=== PATIENT | female | born 1950 | race Caucasian/White ===

== ENCOUNTER → 2024-05-03 08:39 | Outpatient (REF) | payer MEDICARE, SELFPAY | LOC: HWWDC 08:39 | PROVIDERS: ATTENDING PHYSICIAN Family Medicine | DX: M81.0 Age-related osteoporosis without current pathological fracture (principal); Z12.31 Encounter for screening mammogram for malignant neoplasm of breast | CPT/HCPCS: 77063; 77067; 77080 ==

== ENCOUNTER → 2024-06-15 06:28 | Day surgery (SDC) | payer MEDICARE, SELFPAY | LOC: GI 06:28 | PROVIDERS: ATTENDING PHYSICIAN Internal Medicine Gastroenterology | DX: Z12.11 Encounter for screening for malignant neoplasm of colon (principal); D12.3 Benign neoplasm of transverse colon; K63.5 Polyp of colon; K57.30 Diverticulosis of large intestine without perforation or abscess without bleeding; Z86.0100 Personal history of colon polyps, unspecified | CPT/HCPCS: 45380; 88305 ==

== ENCOUNTER 2024-10-03 13:53 | Emergency (ER) | payer MEDICARE, SELFPAY ==
--- NOTE | 2024-10-03 14:12 | ED.GENMED ---
ED Provider Triage
<Pranav Du PA-C - Last Filed: 10/03/24 14:13>
-
Patient seen by provider in Triage?: Seen in Triage
Attestation: A medical screening examination has been initiated by a qualified medical provider. Based on the assessment performed at this time, it has been determined that an emergent medical condition may exist and the patient has been informed
that further medical evaluation and possible additional diagnostic testing may be needed.
HPI: 74-year-old female presents with multiple complaints including headache dizziness lightheadedness sensations she is leaning to the left as well as cough fatigue and indigestion. It has been intermittent since July but worse over the past
several days. She is slightly hypertensive at triage but vital signs otherwise stable. Initiated workup including labs EKG chest x-ray flu and COVID test and CT of head
GENERAL: Alert , in no apparent distress
EYE: No visual abnormalities.
NECK: Trachea midline
ENT: No visible abnormalities.
LUNGS: No acute respiratory distress
NEUROLOGICAL: Alert and oriented
SKIN: Skin intact. No visible changes.
MUSCULOSKELETAL: Moving extremities normally
PSYCH: Normal and appropriate interaction.
This is a medical evaluation conducted in person to initiate diagnostic evaluation and provide initial therapeutics. Please see further documentation by the treating clinician.
History of Present Illness
<Pranav Du PA-C - Last Filed: 10/03/24 14:13>
General
Chief Complaint: Dizziness
Time Seen by Provider: 10/03/24 16:52
<Kenji Alicea DO - Last Filed: 10/03/24 18:05>
History of Present Illness
History of Present Illness:
TIME OF INITIAL ENCOUNTER: 4:55 PM
HPI: The patient reports lightheadedness ongoing over the last several months. The symptoms of lightheadedness have been worsening. She occasionally has a headache. This is associated with some degree of dizziness. She feels like when she walks
she leans towards the left side. Only vague shortness of breath at times described as 'inability to take a full breath' (however she is in no respiratory distress at all).
EXAM:
GENERAL: Well appearing in no distress
HEENT: Moist oral mucosa
CARDIOVASCULAR: No murmurs, normal heart rate, regular rhythm, No chest wall tenderness
PULMONARY: No respiratory distress, breath sounds are clear and equal
ABDOMEN: Soft with no peritoneal signs, no tenderness
NEUROLOGIC: Excellent strength all extremities, no coordination deficits, borderline positive Berne-Hallpike maneuver more so on the right, normal finger-nose testing, I had the patient walk in the room and she did this without any difficulty
PSYCHIATRIC: Appropriate mental status, normal insight and judgement
EXTREMITIES: Nontender, no edema, moves all extremities equally
SKIN: No rash, no lesions
NUMBER AND COMPLEXITY OF PROBLEMS ADDRESSED AT THE ENCOUNTER
� Chronic conditions affecting care: Hypothyroidism, hyperlipidemia
� Acute Exacerbation and/or Progression of Chronic Illness: This is an acute problem
� Differential Diagnosis includes: Positional vertigo, doubt CVA, electrolyte abnormality, intracranial mass,
AMOUNT AND/OR COMPLEXITY OF DATA TO BE REVIEWED AND ANALYZED
� I performed an independent evaluation of and my interpretation is:
EKG: Sinus 78, normal axis, no acute ST abnormality
CT: Brain CT shows no acute abnormality
X-rays: Chest x-ray negative
Laboratory Studies: CBC is unremarkable, chemistries relatively unremarkable, troponin less than 0.012, COVID-negative
Other:
� Review of other/old records: I reviewed records, the patient had a colonoscopy in June 2024
� Clinical information was obtained by an independent historian: I spoke to brother at bedside
� Prescriptions/Medications Considered but not given: Considered IV fluids however the patient feels that she is well-hydrated
� Further testing considered but not performed:
RISK OF COMPLICATIONS AND/OR MORBIDITY OR MORTALITY OF PATIENT MANAGEMENT
� Social determinants of health affecting care: The patient lives at home
� Discussion with other providers:
� Escalation of care including admission/observation vs risk of discharge considered: Although patient describes lightheadedness over the last several months, as well as sensation of veering toward the left when she walks, there
is no abnormal neurologic finding on neurologic examination. She does however have a positive Kishore-Hallpike maneuver at least borderline. More strongly suspect positional vertigo. Gave prescription for vestibular rehab as well as ENT and she does
have appointment with primary care doctor. Believe that the PMD if they wanted to pursue any MRI of the brain in the future.
ANY OTHER UPDATES:
Past History
<Pranav Du PA-C - Last Filed: 10/03/24 14:13>
Past History
ED Past Medical History: Hypercholesterolemia and Other (Hypothyroidism)
Social History
Tobacco: Non-smoker
Alcohol: Occasional
Drug: None
Personal:
Living: with family
Employment: Other (Noncontributory)
Family History
Family History: Other (Father with lung cancer)
Phy Exam
<Kenji Alicea DO - Last Filed: 10/03/24 18:05>
Physical Exam
Physical Exam:
See HPI
Course
<Pranav Du PA-C - Last Filed: 10/03/24 14:13>
Orders/Labs/Results
Orders:
Orders
10/03/24 13:57
ECG [Electrocardiogram (*1)] Urgent
Reason for Study: Chest Pain
EKG- Treatment ONCE
10/03/24 14:11
CR Chest - 2 Views Urgent
Comment:
Reason For Exam: sob
10/03/24 14:12
CT Head W/o Iv Contrast Urgent
Comment:
Reason For Exam: headache, dizzy
02/26/25 14:23
COVID-19 Antigen Urgent
Source: Nasal Swab
Complete Blood Count/With Diff Urgent
Comprehensive Metabolic Panel Urgent
Troponin I Urgent
Influenza A+B Rapid Molecular Urgent
GREG[facility]IO Source: Nasal Swab
Specimen Description:
Abnormal Lab Results
10/03/24
14:23
MPV 11.0 H fL
(7.4-10.4)
Glucose 106 H mg/dl
(70-99)
Calcium 10.3 H mg/dl
(8.4-10.2)
ALT 40 H U/L
(0-35)
10/03/24 14:23
10/03/24 14:23
Vital Signs
Initial and Last Documented VS:
Initial Vital Signs
Pulse Resp Pulse Ox
101 18 98
10/03/24 13:57 10/03/24 13:57 10/03/24 13:57
Last Documented Vital Signs
Pulse Resp BP Pulse Ox
80 20 164/83 96
10/03/24 16:41 10/03/24 16:41 10/03/24 17:12 10/03/24 17:15
<Kenji Alicea, DO - Last Filed: 10/03/24 18:05>
Orders/Labs/Results
Orders:
Orders
10/03/24 13:57
ECG [Electrocardiogram (*1)] Urgent
Reason for Study: Chest Pain
EKG- Treatment ONCE
10/03/24 14:11
CR Chest - 2 Views Urgent
Comment:
Reason For Exam: sob
10/03/24 14:12
CT Head W/o Iv Contrast Urgent
Comment:
Reason For Exam: headache, dizzy
10/03/24 14:23
COVID-19 Antigen Urgent
Source: Nasal Swab
Complete Blood Count/With Diff Urgent
Comprehensive Metabolic Panel Urgent
Troponin I Urgent
Influenza A+B Rapid Molecular Urgent
G[facility]IO Source: Nasal Swab
Specimen Description:
Abnormal Lab Results
10/03/24
14:23
MPV 11.0 H fL
(7.4-10.4)
Glucose 106 H mg/dl
(70-99)
Calcium 10.3 H mg/dl
(8.4-10.2)
ALT 40 H U/L
(0-35)
10/03/24 14:23
10/03/24 14:23
Vital Signs
Initial and Last Documented VS:
Initial Vital Signs
Pulse Resp Pulse Ox
101 18 98
10/03/24 13:57 10/03/24 13:57 10/03/24 13:57
Last Documented Vital Signs
Pulse Resp BP Pulse Ox
80 20 164/83 96
10/03/24 16:41 10/03/24 16:41 10/03/24 17:12 10/03/24 17:15
<Kenji Alicea DO - Last Filed: 10/03/24 18:05>
*Critical Care Note
Total Time (30-74mins, 75-104mins- exclusive of procedures): Not Applicable
ED Attending Note
<Pranav Du PA-C - Last Filed: 10/03/24 14:13>
-
Portions of this chart may have been created with voice recognition software.� Occasional wrong word or��sound alike� substitutions may have occurred due to the inherent limitations of voice recognition software.
Discharge Plan
Departure
Patient Disposition: Home (Routine Discharge)
Date of Disposition: 10/03/24
Time of Disposition: 17:56
Patient with high blood pressure during this ER visit?: Yes
Discharge Problem:
Dizziness
Instructions: Vertigo (a Type of Dizziness) (DC), BLOOD PRESSURE
Prescriptions:
No Action
atorvastatin 10 MG tablet
20 mg PO QPM
levothyroxine 75 MCG tablet
75 mcg PO DAILY
Referrals:
Nazario Matias MD [Active] - Follow up in 2-3 days
Activity Restrictions/Additional Instructions:
You could call physical therapy at [phone] to see if they could help - take paper presciption. Follow up with PMD tomorrow. I have also given you contact infor for a local ENT, Dr. Matias. Return here if worse or other concerns.
Interventions
Interventions:
*Risk Screen - Suicide Last Done: 10/03/24 14:11
*General Assessment Last Done: 10/03/24 14:11
*Neglect/Abuse Screening Last Done: 10/03/24 14:11
ED- Fall Risk Assessment Last Done: 10/03/24 17:13
*ED COVID-19 Vaccine History Last Done: 10/03/24 17:13
ED- Cardiac Assessment Last Done: 10/03/24 17:13
ED- Neurological Assessment Last Done: 10/03/24 17:13
ED- Pulmonary Assessment Last Done: 10/03/24 17:13
ED Swallowing Screen Last Done: 10/03/24 17:04
Discharge Date and Time
Print Language: GEORGIAN
[2024-10-03 14:34] LABS: % Basophils 1.1 % (0-2); % Eosinophils 2.6 % (0-6); % Immature Granulocytes 0.3 % (0-0.5); % Lymphocytes 24.3 % (20.5-51.1); % Neutrophils 63.7 % (42.2-75.2); Absolute Basophils 0.1 10^3/uL (0-0.2); Absolute Eosinophils 0.2 10^3/uL (0-0.7); Absolute Lymphocytes 1.5 10^3/uL (1.2-3.4); Absolute Monocytes 0.5 10^3/uL (0.1-0.6); Hemoglobin 15.1 g/dL (12.0-16.0); Mean Corp Hgb Conc. 33.6 g/dL (33.0-37.0); Mean Corpuscular Hgb 29.1 pg (27.0-31.0); Mean Corpuscular Volume 86.7 fL (81.0-99.0); Nucleated Red Blood Cells % 0 %; Platelet Count 225 10^3/uL (130-400); Red Blood Cell Count 5.19 10^6/uL (4.20-5.40); Red Cell Dist. Width 14.2 % (11.5-14.5); White Blood Cell Count 6.3 10^3/uL (4.8-10.8)
[2024-10-03 14:49] LABS: ALT (SGPT) 40 U/L (0-35); AST (SGOT) 36 U/L (14-36); Albumin 4.9 g/dl (3.5-5.0); Alkaline Phosphatase 82 U/L (38-126); Blood Urea Nitrogen 15 mg/dl (7-17); Calcium 10.3 mg/dl (8.4-10.2); Carbon Dioxide 24 mmol/L (22-30); Chloride 106 mmol/L (98-107); Glucose 106 mg/dl (70-99); Potassium 4.3 mmol/L (3.5-5.1); Sodium 139 mmol/L (135-145); Total Bilirubin 0.8 mg/dl (0.2-1.3); Total Protein 7.3 g/dl (6.3-8.2); eGFR 59.86
[2024-10-03 14:58] LABS: COVID-19 Antigen Negative (Negative)
[2024-10-03 15:01] LABS: Troponin I < 0.012 ng/ml
[2024-10-03 16:41] VITALS: BP 152/99
[2024-10-03 17:12] VITALS: BP 164/83; BMI 28.1
== END 2024-10-03 18:21 | disposition home or self-care (01) ==
LOC: EMR 13:53
PROVIDERS: Physician Assistant; EMERGENCY PHYSICIAN Emergency Medicine; FAMILY PHYSICIAN Family Medicine
DX: R42 Dizziness and giddiness (principal); R51.9 Headache, unspecified; R06.02 Shortness of breath; R03.0 Elevated blood-pressure reading, without diagnosis of hypertension; E78.00 Pure hypercholesterolemia, unspecified; E03.9 Hypothyroidism, unspecified; Z11.52 Encounter for screening for COVID-19
CPT/HCPCS: 99285; 70450; 71046; 80053; 84484; 85025; 87502; 87811; 93005

== ENCOUNTER → 2024-11-26 07:55 | Outpatient (REF) | payer MEDICARE, SELFPAY | LOC: RST 07:55 | PROVIDERS: ATTENDING PHYSICIAN Family Medicine | DX: R13.10 Dysphagia, unspecified (principal) | CPT/HCPCS: 74230; 92611 ==

== ENCOUNTER → 2024-12-14 15:38 | Outpatient (REF) | payer MEDICARE, SELFPAY | LOC: HWRCS 15:38 | PROVIDERS: ATTENDING PHYSICIAN Internal Medicine Cardiovascular Disease; FAMILY PHYSICIAN Family Medicine | DX: R00.2 Palpitations (principal) | CPT/HCPCS: 93306 ==

== ENCOUNTER → 2024-12-17 10:07 | Outpatient (REF) | payer MEDICARE, SELFPAY | LOC: RCS 10:07 | PROVIDERS: ATTENDING PHYSICIAN Internal Medicine Cardiovascular Disease; FAMILY PHYSICIAN Family Medicine | DX: R00.2 Palpitations (principal); R07.89 Other chest pain | CPT/HCPCS: 93017; 93225; 93226 ==

== ENCOUNTER 2025-01-07 06:21 | Day surgery (SDC) | payer MEDICARE, SELFPAY | END 2025-01-07 11:43 | disposition home or self-care (01) | LOC: GI 06:21 | PROVIDERS: ATTENDING PHYSICIAN Internal Medicine Gastroenterology | DX: R13.10 Dysphagia, unspecified (principal); K22.2 Esophageal obstruction; K44.9 Diaphragmatic hernia without obstruction or gangrene; Q39.9 Congenital malformation of esophagus, unspecified; K31.89 Other diseases of stomach and duodenum; K22.89 Other specified disease of esophagus | CPT/HCPCS: 43239; 88305; 88342 ==

== ENCOUNTER → 2025-02-27 07:19 | Outpatient (REF) | payer MEDICARE, SELFPAY | LOC: HWRAD 07:19 | PROVIDERS: ATTENDING PHYSICIAN Internal Medicine Gastroenterology; FAMILY PHYSICIAN Family Medicine | DX: R10.13 Epigastric pain (principal) | CPT/HCPCS: 76700 ==

== ENCOUNTER → 2025-05-06 06:59 | Outpatient (REF) | payer MEDICARE, SELFPAY | LOC: HWWDC 06:59 | PROVIDERS: ATTENDING PHYSICIAN Family Medicine | DX: Z12.31 Encounter for screening mammogram for malignant neoplasm of breast (principal) | CPT/HCPCS: 77063; 77067 ==

== ENCOUNTER → 2025-05-15 06:40 | Outpatient (REF) | payer MEDICARE, SELFPAY | LOC: RAD 06:40 | PROVIDERS: ATTENDING PHYSICIAN Nurse Practitioner; FAMILY PHYSICIAN Family Medicine | DX: R10.13 Epigastric pain (principal); R63.4 Abnormal weight loss | CPT/HCPCS: 74177; Q9967 ==

== ENCOUNTER → 2025-06-07 07:04 | Outpatient (REF) | payer MEDICARE, SELFPAY | LOC: RAD 07:04 | PROVIDERS: ATTENDING PHYSICIAN Nurse Practitioner; FAMILY PHYSICIAN Family Medicine | DX: R10.13 Epigastric pain (principal); R74.01 Elevation of levels of liver transaminase levels | CPT/HCPCS: 78227; A9537; J2805 ==